=== PATIENT | female | born 2000 | race Caucasian/White ===

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

== ENCOUNTER 2022-01-20 20:31 | Emergency (ER) | payer BC, OTHER ==
[2022-01-20 23:58] LABS: BLOOD UREA NITROGEN,BUN 9 mg/dL (7.0-18.0); CARBON DIOXIDE,CO2 25.9 mmol/L (21.0-32.0); CHLORIDE,CL 101 mmol/L (98-107); GLUCOSE RANDOM 77 mg/dL (74-106); POTASSIUM,K 3.6 mmol/L (3.5-5.1); SODIUM,NA 138 mmol/L (136-145)
== END 2022-01-21 00:46 | disposition home or self-care (01) ==
LOC: MW.ED 20:31
DX: S70.11XA Contusion of right thigh, initial encounter (principal); R07.81 Pleurodynia; R21 Rash and other nonspecific skin eruption; E03.9 Hypothyroidism, unspecified; Z79.899 Other long term (current) drug therapy
CPT/HCPCS: 36415; 71101-26-LT; 71101-LT; 80053; 84439; 84443; 85025; 85610; 85730; 93005; 99283; 99283-25

== ENCOUNTER 2022-04-03 20:35 | Emergency (ER) | payer BC, OTHER ==
[2022-04-03 21:54] LABS: ACETAMINOPHEN <2.0 ug/mL; BLOOD UREA NITROGEN,BUN 9 mg/dL (7.0-18.0); CARBON DIOXIDE,CO2 25.9 mmol/L (21.0-32.0); CHLORIDE,CL 103 mmol/L (98-107); GLUCOSE RANDOM 90 mg/dL (74-106); POTASSIUM,K 3.4 mmol/L (3.5-5.1); SODIUM,NA 136 mmol/L (136-145)
[2022-04-03 21:57] LABS: ESTIMATED GFR 94 mL/min (>60)
== END 2022-04-04 01:05 | disposition home or self-care (01) ==
LOC: MW.ED 20:35
DX: R45.88 Nonsuicidal self-harm (principal); Z91.52 Personal history of nonsuicidal self-harm; Z20.822 Contact with and (suspected) exposure to COVID-19
CPT/HCPCS: 36415; 80053; 80143; 80179; 80305-QW; 80307; 81001; 81025; 83735; 84443; 85025; 93005; 99285-25; U0002